=== PATIENT | male | born 1935 | race Caucasian/White ===

== ENCOUNTER 2018-10-23 16:14 | Emergency (ER) | payer MEDICARE, OTHER ==
--- NOTE | 2018-10-23 16:30 | EDM.PDOC ---
ED HPI GENERAL MEDICAL PROBLEM - General Stated Complaint: WEAK AND FALLING Time Seen by Provider: 10/23/18 16:14 Source of Information: Reports: Patient, EMS, Family History Limitations: Reports: Altered Mental Status, Physical Impairment - History of Present Illness INITIAL COMMENTS - FREE TEXT/NARRATIVE: 83 y.o.w.m with multiple medical issues, came to the ED by EMS due to multiple falls. Pt had a back injury in the past, he fractured T7. pt is cooperative but not able to give a HPI, which was given by his daughters. Pt fell 3 times in the past few days. He is getting some physical Tx to strengthen his extremities. Pt has neck, upper and lower back pain. No N/V/D, pt is not able to ambulate by himself, needs help with every step. He has his own apartment at the [facility], may need an upgrade in a full care home. BP 154/64 Pulse 54 RR 16 Pulse ox 94% on RA Temp 36.8 Onset: Today Onset Date: 10/23/18 Onset Time: 07:00 Duration: Hour(s):, Intermittent Location: Reports: Back, Generalized Quality: Reports: Dull, Pressure, Same as Previous Episode Severity: Moderate Improves with: Reports: Rest Worsens with: Reports: Movement Context: Reports: Other (fall) Associated Symptoms: Reports: Weakness - Related Data Allergies Allergy/AdvReac Type Severity Reaction Status Date / Time No Known Allergies Allergy Verified 10/23/18 16:38 Home Meds: Home Meds Acetaminophen [Tylenol Arthritis] 650 mg PO BID 02/21/16 [History] Aspirin [Ecotrin] 325 mg PO MOWEFR 02/21/16 [History] Cholecalciferol (Vitamin D3) [Vitamin D3] 1,000 unit PO BEDTIME 02/21/16 [ History] Donepezil HCl [Aricept] 5 mg PO BEDTIME 02/21/16 [History] Dutasteride [Avodart] 0.5 mg PO DAILY 02/21/16 [History] Furosemide [Lasix] 40 mg PO DAILY 02/21/16 [History] Gluc/Chnd/Om3/DHA/EPA/Fish/Str [Glucosamine-Chondr Plus Sftgel] 1 tab TID [History] Isosorbide Mononitrate [Imdur] 30 mg PO DAILY 02/21/16 [History] Metoprolol Succinate [Toprol XL 100mg] 100 mg PO DAILY 02/21/16 [History] Multivitamin-Min/Iron/FA/Vit K [Multi-Day Plus Minerals Tablet] 1 tab DAILY 09/26 [History] Omeprazole Magnesium [Prilosec Otc] 20 mg PO DAILY 02/21/16 [History] Petrolatum,White [Petroleum Jelly] 1 applic NASBOTH DAILY 02/21/16 [History] Simethicone 125 mg PO QID 02/21/16 [History] Tamsulosin [Flomax] 0.4 mg PO DAILY 02/21/16 [History] rOPINIRole [Requip] 0.5 mg PO BEDTIME 02/21/16 [History] Donepezil [Aricept] 10 mg PO BEDTIME #30 tablet 02/23/16 [Rx] Lisinopril [Prinivil] 10 mg PO BID #60 tablet 02/23/16 [Rx] amLODIPine [Norvasc] 2.5 mg PO BEDTIME #30 tablet 02/23/16 [Rx] Past Medical History HEENT History: Reports: Impaired Vision Cardiovascular History: Reports: CAD, High Cholesterol, Hypertension, SOB on Exertion Respiratory History: Reports: Sleep Apnea Gastrointestinal History: Reports: GERD Genitourinary History: Reports: BPH Endocrine/Metabolic History: Reports: Diabetes, Type II Social & Family History - Family History Family Medical History: Noncontributory ED ROS GENERAL - Review of Systems Review Of Systems: Unable To Obtain ED EXAM, NEURO - Physical Exam Exam: See Below Exam Limited By: Physical Impairment General Appearance: Alert, WD/WN, Mild Distress, Obese Eye Exam: Bilateral Eye: Normal Inspection Ears: Normal External Exam Nose: Normal Inspection Throat/Mouth: Normal Lips, Normal Voice, No Airway Compromise Head Exam: Atraumatic, Normocephalic Neck: Normal Inspection, Supple, Non-Tender Respiratory/Chest: No Respiratory Distress, Lungs Clear, Normal Breath Sounds, Chest Non-Tender Cardiovascular: Normal Peripheral Pulses, Regular Rate, Rhythm, Bradycardia GI/Abdominal: Normal Bowel Sounds, Soft, Non-Tender, No Organomegaly, No Abnormal Bruit, No Mass, Pelvis Stable (Male) Exam: Deferred Rectal (Males) Exam: Deferred Neurological: Alert, CN II-XII Intact, Abnormal Gait (uable to ambulate due to weakness and back pain, chronic) Back Exam: Decreased Range of Motion, Paraspinal Tenderness, Vertebral Tenderness (chronic) Extremities: Normal Inspection, Normal Range of Motion Psychiatric: Normal Affect, Depressed Mood Skin Exam: Warm, Dry, Intact, Normal Color EKG INTERPRETATION EKG Date: 10/23/18 Time: 16:25 Rhythm: NSR Rate (Beats/Min): 52 [place]: Normal P-Wave: Present QRS: Normal ST-T: Normal QT: Normal Comparison: NA - No Prior EKG Course - Vital Signs Text/Narrative:: 83 y.o.w.m with multiple medical issues, came to the ED by EMS due to multiple falls. Pt had a back injury in the past, he fractured T7. pt is cooperative but not able to give a HPI, which was given by his daughters. Pt fell 3 times in the past few days. He is getting some physical Tx to strengthen his extremities. Pt has neck, upper and lower back pain. No N/V/D, pt is not able to ambulate by himself, needs help with every step. He has his own apartment at the [facility] living [facility], may need an upgrade in a full care home. BP 154/64 Pulse 54 RR 16 Pulse ox 94% on RA Temp 36.8 PE: Obese 83 y.o.w.m with gen weakness and chronic patch pain after an injury in the distant past. Fell 3 time in the past week, able to ambulant with walker and help. Labs: CBC nl, BMP Nl except K 3.4 BUN 25 Cr 1.7 GFR 37 CK 345 Troponin was o.o17 nl UA was neg Imaging: CT Head: NAD, age related changes, Thoracic spine: No acute fx, nodule left upper lobe of lung, cholelithiasis C spine: Deg changes, no acute fracture Impression: Chronic mid back pain s/p T 7 Fx. Gen weakness, chronic. S/P fall, Bradycardia with nl BP Tx: Ice to lower bag Reexam: Pt was discussed with family who agreed to take him home Plan: D/C with instructions Last Recorded V/S: Last Vital Signs Temp 36.6 C 10/23/18 19:45 Pulse 69 10/23/18 19:45 Resp 16 10/23/18 19:45 BP 159/95 H 10/23/18 19:45 Pulse Ox 97 10/23/18 19:45 - Orders/Labs/Meds Orders: Active Orders 24 hr Category Date Time Status Cervical Spine wo Cont [CT] Stat Exams 10/23/18 16:24 Taken Head wo Cont [CT] Stat Exams 10/23/18 16:24 Taken Lumbar Spine wo Cont [CT] Stat Exams 10/23/18 16:24 Taken Thoracic Spine wo Cont [CT] Stat Exams 10/23/18 16:24 Taken EKG 12 Lead [EK] Routine Ther 10/23/18 16:24 Ordered Labs: Laboratory Tests 10/23/18 10/23/18 10/23/18 Range/Units 16:40 16:40 16:40 WBC 11.2 (4.5-12.0) X10-3/uL RBC 4.51 (4.30-5.75) x10(6)uL Hgb 13.8 (11.5-15.5) g/dL Hct 41.0 (30.0-51.3) % MCV 90.8 (80-96) fL MCH 30.6 (27.7-33.6) pg MCHC 33.7 (32.2-35.4) g/dL RDW 13.5 (11.5-15.5) % Plt Count 250 (125-369) X10(3)uL MPV 8.7 (7.4-10.4) fL Neut % (Auto) 77.3 (46-82) % Lymph % (Auto) 12.0 L (13-37) % [place] % (Auto) 6.8 (4-12) % Eos % (Auto) 4 (1.0-5.0) % Baso % (Auto) 0 (0-2) % Neut # (Auto) 8.7 H (1.6-8.3) # Lymph # (Auto) 1.3 (0.6-5.0) # [place] # (Auto) 0.8 (0.0-1.3) # Eos # (Auto) 0.4 (0.0-0.8) # Baso # (Auto) 0.0 (0.0-0.2) # PT 10.4 (8.7-11.1) INR 1.07 (0.89-1.13) Sodium 142 (135-145) mmol/L Potassium 3.4 L (3.5-5.3) mmol/L Chloride 107 (100-110) mmol/L Carbon Dioxide 26 (21-32) mmol/L BUN 25 H (7-18) mg/dL Creatinine 1.7 H (0.70-1.30) mg/dL Est Cr Clr Drug Dosing TNP Estimated GFR (MDRD) 39 L (>60) BUN/Creatinine Ratio 14.7 (9-20) Glucose 156 H (80-116) mg/dL Calcium 8.6 (8.6-10.2) mg/dL Magnesium 1.8 (1.8-2.5) mg/dL Creatine Kinase 328 H* (60-160) IU/L Troponin I (<0.017-0.056) ng/mL Urine Color (YELLOW) Urine Appearance (CLEAR) Urine pH (5.0-6.5) Ur Specific [place] (1.010-1.025) Urine Protein (NEGATIVE) mg/dL Urine Glucose (UA) (NEGATIVE) mg/dL Urine Ketones (NEGATIVE) mg/dL Urine Occult Blood (NEGATIVE) Urine Nitrite (NEGATIVE) Urine Bilirubin (NEGATIVE) Urine Urobilinogen (NEGATIVE) mg/dL Ur Leukocyte Esterase (NEGATIVE) Urine RBC (0) Urine WBC (0) Ur Squamous Epith Cells (NS,R,O) Urine Bacteria (NS) 10/23/18 10/23/18 Range/Units 16:40 17:55 WBC (4.5-12.0) X10-3/uL RBC (4.30-5.75) x10(6)uL Hgb (11.5-15.5) g/dL Hct (30.0-51.3) % MCV (80-96) fL MCH (27.7-33.6) pg MCHC (32.2-35.4) g/dL RDW (11.5-15.5) % Plt Count (125-369) X10(3)uL MPV (7.4-10.4) fL Neut % (Auto) (46-82) % Lymph % (Auto) (13-37) % [place] % (Auto) (4-12) % Eos % (Auto) (1.0-5.0) % Baso % (Auto) (0-2) % Neut # (Auto) (1.6-8.3) # Lymph # (Auto) (0.6-5.0) # [place] # (Auto) (0.0-1.3) # Eos # (Auto) (0.0-0.8) # Baso # (Auto) (0.0-0.2) # PT (8.7-11.1) INR (0.89-1.13) Sodium (135-145) mmol/L Potassium (3.5-5.3) mmol/L Chloride (100-110) mmol/L Carbon Dioxide (21-32) mmol/L BUN (7-18) mg/dL Creatinine (0.70-1.30) mg/dL Est Cr Clr Drug Dosing Estimated GFR (MDRD) (>60) BUN/Creatinine Ratio (9-20) Glucose (80-116) mg/dL Calcium (8.6-10.2) mg/dL Magnesium (1.8-2.5) mg/dL Creatine Kinase (60-160) IU/L Troponin I < 0.017 L (<0.017-0.056) ng/mL Urine Color Yellow (YELLOW) Urine Appearance Clear (CLEAR) Urine pH 5.0 (5.0-6.5) Ur Specific [place] 1.020 (1.010-1.025) Urine Protein Negative (NEGATIVE) mg/dL Urine Glucose (UA) Normal (NEGATIVE) mg/dL Urine Ketones Negative (NEGATIVE) mg/dL Urine Occult Blood Negative (NEGATIVE) Urine Nitrite Negative (NEGATIVE) Urine Bilirubin Negative (NEGATIVE) Urine Urobilinogen Normal (NEGATIVE) mg/dL Ur Leukocyte Esterase Negative (NEGATIVE) Urine RBC 0-5 (0) Urine WBC 0-5 (0) Ur Squamous Epith Cells Occasional (NS,R,O) Urine Bacteria Rare H (NS) Departure - Departure Time of Disposition: 19:14 Disposition: Home, Self-Care 01 Condition: Good Clinical Impression: Weakness, Chronic back pain greater than 3 months duration Fall Qualifiers: Encounter type: initial encounter Qualified Code(s): W19.XXXA - Unspecified fall, initial encounter - Discharge Information Instructions: Dehydration, Elderly, Weakness, Chronic Back Pain, Rehydration, Elderly Referrals: Saad Orona MD [Primary Care Provider] - Forms: ED Department Discharge Additional Instructions: Please cont your current meds, ICE to lower back, Physical Tx, please f/u, come back if your symptoms get worse acutely - My Orders Last 24 Hours: My Active Orders 10/23/18 16:24 Cervical Spine wo Cont [CT] Stat Head wo Cont [CT] Stat Lumbar Spine wo Cont [CT] Stat Thoracic Spine wo Cont [CT] Stat EKG 12 Lead [EK] Routine - Assessment/Plan Last 24 Hours: My Active Orders 10/23/18 16:24 Cervical Spine wo Cont [CT] Stat Head wo Cont [CT] Stat Lumbar Spine wo Cont [CT] Stat Thoracic Spine wo Cont [CT] Stat EKG 12 Lead [EK] Routine
[2018-10-24 08:04] VITALS: BP 159/95
== END 2018-10-23 19:45 | disposition home or self-care (01) ==
LOC: FB.ED 16:14
DX: M54.5 Low back pain (principal); G89.29 Other chronic pain; E11.9 Type 2 diabetes mellitus without complications; I10 Essential (primary) hypertension; Z79.82 Long term (current) use of aspirin; Z79.899 Other long term (current) drug therapy; W19.XXXA Unspecified fall, initial encounter
CPT/HCPCS: 36415; 70450; 72125; 72128; 72131; 80048; 81001; 82550; 83735; 84484; 85025; 85610; 93005; 99284

== ENCOUNTER 2020-04-04 09:39 | Inpatient (IN) | payer MEDICARE, OTHER ==
[2020-04-04] MEDS ORDERED: Sodium Chloride 0.9% 1,000 ML IV SCH ×2 (10:00→15:45)
[2020-04-04] MEDS: Sodium Chloride 0.9% 10 ML Syringe FLUSH PRN ×2 (10:20→10:55)
--- NOTE | 2020-04-04 10:37 | CR ---
INDICATION: Altered level of consciousness. CHEST, ONE VIEW: AP upright portable view of the chest 04/04/20 was compared with 02/21/16 and 10/15/11 revealing a very poor inspiration. Overlying snaps are noted. The heart is prominent in appearance, most likely due to the poor inspiration but cannot exclude a degree of cardiomegaly. The aorta is somewhat tortuous with calcification in the arch. Mild dextroconvex scoliosis of the thoracic spine is noted. Pleural effusion is suggested at the left lung base with blunting of the costophrenic angle. There may be some minimal infiltrate at the left lower lobe raising question of pneumonia and pleuritis there. The right lung and pleural space appeared relatively normal. IMPRESSION: 1. Possible pneumonia and pleuritis at the left lung base. 2. Possible ASHD with cardiomegaly - when clinically possible, full inspiration PA and lateral views of the chest may be helpful for further evaluation. MTDD
--- NOTE | 2020-04-04 11:03 | CT ---
INDICATION: Altered level of consciousness. CT HEAD WITHOUT CONTRAST: Spiral 3.75 mm axial sections were obtained through the brain with sagittal and coronal reconstructions 04/04/20 and compared with 10/23/18. Total exam DLP was 1348.07 mGy-cm. Paranasal sinuses and mastoid air cells appear to be well aerated. No cranial abnormality was identified. Moderate degenerative changes are noted at the odontoatlantian joint. Calcifications noted in the right vertebral artery and minimally in the internal carotid arteries. The orbits appear to be intact. Prominence of the ventricles and sulci are compatible, as previously, with generalized atrophy. No shift of midline structures was identified. IMPRESSION: 1. Stable appearance of the brain with evidence of generalized atrophy. 2. Cerebrovascular disease. 3. No bleeding site or hematoma. Report was called to Dr. Santiago at 1046 hours. [facility]
--- NOTE | 2020-04-04 12:39 | EDM.PDOC ---
ED HPI GENERAL MEDICAL PROBLEM - General Chief Complaint: General Stated Complaint: VERY LATHERGIC Time Seen by Provider: 04/04/20 09:45 Source of Information: Reports: Patient History Limitations: Reports: No Limitations - History of Present Illness INITIAL COMMENTS - FREE TEXT/NARRATIVE: Patient is an 85 YO WM who is a resident at the [facility] presented to the ED because of weaknes and frequent fall during the past couple of months. He is gradually declining per POA. For the past 3 days he has poor oral intake, lethhargic and couldn't perform ADL's which he normally does with some help. There is no recent cough or cold, fever, chills, N/V/D. He denies any chest pain or dyspnea. POA wants her to be evaluated for NH placement. - Related Data Allergies Allergy/AdvReac Type Severity Reaction Status Date / Time No Known Allergies Allergy Verified 04/04/20 10:04 Home Meds: Home Meds Acetaminophen [Tylenol Arthritis] 1,300 mg PO BID 02/21/16 [History] Aspirin [Ecotrin EC] 325 mg PO SUMOWEFR 02/21/16 [History] Cholecalciferol (Vitamin D3) [Vitamin D3] 1,000 unit PO BEDTIME 02/21/16 [His tory] Dutasteride [Avodart] 0.5 mg PO DAILY 02/21/16 [History] Furosemide [Lasix] 40 mg PO DAILY 02/21/16 [History] Gluc/Chnd/Om3/DHA/EPA/Fish/Str [Glucosamine-Chondr Plus Sftgel] 1 tab TID 02/21/16 [History] Isosorbide Mononitrate [Imdur] 30 mg PO DAILY 02/21/16 [History] Metoprolol Succinate [Toprol XL 100mg] 100 mg PO DAILY 02/21/16 [History] Multivitamin-Min/Iron/FA/Vit K [Multi-Day Plus Minerals Tablet] 1 tab PO DAILY 02/21/16 [History] Omeprazole Magnesium [Prilosec Otc] 20 mg PO DAILY 02/21/16 [History] rOPINIRole [Requip] 0.5 mg PO BEDTIME 02/21/16 [History] Donepezil [Aricept] 10 mg PO BEDTIME #30 tablet 02/23/16 [Rx] Memantine HCl [Namenda] 10 mg PO BID 04/04/20 [History] Sodium Chloride [Saline Nasal [place]] 1 spray NASBOTH ASDIRECTED PRN 04/04/20 [History] Terbinafine [LamISIL AT 1% Crm] 1 applic TOP ASDIRECTED PRN 04/04/20 [History] amLODIPine Besylate [Amlodipine Besylate] 5 mg PO BID 04/04/20 [History] Past Medical History HEENT History: Reports: Epistaxis, Impaired Vision Cardiovascular History: Reports: CAD, Heart Failure, High Cholesterol, Hypertension, SOB on Exertion, Other (See Below) Other Cardiovascular History: Fatigue, dizziness Respiratory History: Reports: Sleep Apnea Gastrointestinal History: Reports: GERD Genitourinary History: Reports: BPH Musculoskeletal History: Reports: Back Pain, Chronic, Osteoarthritis, Other (See Below) Other Musculoskeletal History: cervial disc degeneration, restless leg syndrome, contusion left knee, frequent falls Neurological History: Reports: Alzheimers Disease Other Neuro History: Dementia Psychiatric History: Reports: Anxiety, Depression Endocrine/Metabolic History: Reports: Diabetes, Type II Social & Family History - Family History Family Medical History: Noncontributory - Tobacco Use Smoking Status *Q: Never Smoker Second Hand Smoke Exposure: No - Caffeine Use Caffeine Use: Reports: Coffee - Recreational Drug Use Recreational Drug Use: No ED ROS GENERAL - Review of Systems Review Of Systems: See Below Constitutional: Reports: Weakness, Decreased Appetite HEENT: Reports: No Symptoms Respiratory: Reports: No Symptoms Cardiovascular: Reports: No Symptoms Endocrine: Reports: No Symptoms GI/Abdominal: Reports: No Symptoms : Reports: No Symptoms Musculoskeletal: Reports: No Symptoms Skin: Reports: No Symptoms Neurological: Reports: No Symptoms ED EXAM, GENERAL - Physical Exam Exam: See Below Exam Limited By: Altered Mental Status General Appearance: Lethargic Eye Exam: Bilateral Eye: PERRL Ears: Normal External Exam, Normal Canal Nose: Normal Inspection, Normal Mucosa, No Blood Throat/Mouth: Normal Inspection, Normal Lips, Normal Teeth, Normal Gums Head: Atraumatic, Normocephalic Neck: Normal Inspection, Supple, Non-Tender, Full Range of Motion Respiratory/Chest: No Respiratory Distress, Lungs Clear, Normal Breath Sounds Cardiovascular: Normal Peripheral Pulses, Regular Rate, Rhythm, No Edema, No JVD, No Murmur, No Rub GI/Abdominal: Normal Bowel Sounds, Soft, Non-Tender, No Organomegaly, No Distention Back Exam: Normal Inspection, Full Range of Motion Extremities: Normal Inspection, Normal Range of Motion, Non-Tender Course - Vital Signs Text/Narrative:: Labs/EKG/CXR/Head CT was discussed with patient and POA NS 1 L bolus in 2 hours Code Status: DNR/DNI Last Recorded V/S: Last Vital Signs Temp 35.1 C L 04/04/20 11:14 Pulse 38 L 04/04/20 11:14 Resp 18 04/04/20 11:14 BP 125/55 L 04/04/20 11:14 Pulse Ox 96 04/04/20 11:14 - Orders/Labs/Meds Orders: Active Orders 24 hr Category Date Time Status EKG Documentation Completion [RC] ASDIRECTED Care 04/04/20 09:54 Active Sodium Chloride 0.9% [Normal Saline] 1,000 ml Med 04/04/20 10:00 Active IV ASDIRECTED Sodium Chloride 0.9% [Saline Flush] Med 04/04/20 09:53 Active 10 ml FLUSH ASDIRECTED PRN Saline Lock Insert [OM.PC] Routine Oth 04/04/20 09:53 Ordered EKG 12 Lead [EK] Routine Ther 04/04/20 09:53 Ordered Medication Orders Sodium Chloride (Normal Saline) 1,000 mls @ 500 mls/hr IV ASDIRECTED JOCE Last Admin: 04/04/20 10:58 Dose: 500 mls/hr Documented by: TWIN Sodium Chloride (Saline Flush) 10 ml FLUSH ASDIRECTED PRN PRN Reason: Keep Vein Open Last Admin: 04/04/20 10:55 Dose: 10 ml Documented by: Admin: 04/04/20 10:20 Dose: 10 ml Documented by: TWIN Labs: Laboratory Tests 04/04/20 04/04/20 04/04/20 Range/Units 10:10 10:10 10:10 WBC 9.9 (4.5-12.0) X10-3/uL RBC 4.53 (4.30-5.75) x10(6)uL Hgb 12.6 L (13.5-17.8) g/dL Hct 40.6 (30.0-51.3) % MCV 89.6 (80-96) fL MCH 27.7 (27.7-33.6) pg MCHC 30.9 L (32.2-35.4) g/dL RDW 15.7 H (11.5-15.5) % Plt Count 125 (125-369) X10(3)uL MPV 10.8 H (7.4-10.4) fL Add Manual Diff Yes Neutrophils % (Manual) 85 H (46-82) % Lymphocytes % (Manual) 10 L (13-37) % Monocytes % (Manual) 4 (4-12) % Eosinophils % (Manual) 1 (0-5) % Sodium 147 H (135-145) mmol/L Potassium 5.2 D (3.5-5.3) mmol/L Chloride 111 H (100-110) mmol/L Carbon Dioxide 30 (21-32) mmol/L BUN 55 H D (7-18) mg/dL Creatinine 2.4 H* (0.70-1.30) mg/dL Est Cr Clr Drug Dosing 18.84 mL/min Estimated GFR (MDRD) 26 L (>60) BUN/Creatinine Ratio 22.9 H (9-20) Glucose 183 H (80-116) mg/dL Calcium 8.9 (8.6-10.2) mg/dL Total Bilirubin 0.2 (0.1-1.3) mg/dL AST 38 H (5-25) IU/L ALT 71 H (12-36) U/L Alkaline Phosphatase 139 H (56-112) IU/L Creatine Kinase (60-160) IU/L Troponin I 27.7 (4.0-60.3) pg/mL NT-Pro-B Natriuret Pep 786 H (<=450) pg/mL Total Protein 6.6 (6.0-8.0) g/dL Albumin 2.9 L (3.2-4.6) g/dL Globulin 3.7 g/dL Albumin/Globulin Ratio 0.8 TSH, Ultra Sensitive 6.24 H (0.36-3.74) IU/mL Urine Color (YELLOW) Urine Appearance (CLEAR) Urine pH (5.0-6.5) Ur Specific [place] (1.010-1.025) Urine Protein (NEGATIVE) mg/dL Urine Glucose (UA) (NORMAL) mg/dL Urine Ketones (NEGATIVE) mg/dL Urine Occult Blood (NEGATIVE) Urine Nitrite (NEGATIVE) Urine Bilirubin (NEGATIVE) Urine Urobilinogen (NEGATIVE) mg/dL Ur Leukocyte Esterase (NEGATIVE) Urine RBC (0-5) Urine WBC (0-5) Ur Squamous Epith Cells (NS,R,O) Amorphous Sediment Urine Bacteria (NS) SARS Virus RNA (PCR) (NEGATIVE) 04/04/20 04/04/20 04/04/20 Range/Units 10:10 11:05 11:10 WBC (4.5-12.0) X10-3/uL RBC (4.30-5.75) x10(6)uL Hgb (13.5-17.8) g/dL Hct (30.0-51.3) % MCV (80-96) fL MCH (27.7-33.6) pg MCHC (32.2-35.4) g/dL RDW (11.5-15.5) % Plt Count (125-369) X10(3)uL MPV (7.4-10.4) fL Add Manual Diff Neutrophils % (Manual) (46-82) % Lymphocytes % (Manual) (13-37) % Monocytes % (Manual) (4-12) % Eosinophils % (Manual) (0-5) % Sodium (135-145) mmol/L Potassium (3.5-5.3) mmol/L Chloride (100-110) mmol/L Carbon Dioxide (21-32) mmol/L BUN (7-18) mg/dL Creatinine (0.70-1.30) mg/dL Est Cr Clr Drug Dosing mL/min Estimated GFR (MDRD) (>60) BUN/Creatinine Ratio (9-20) Glucose (80-116) mg/dL Calcium (8.6-10.2) mg/dL Total Bilirubin (0.1-1.3) mg/dL AST (5-25) IU/L ALT (12-36) U/L Alkaline Phosphatase (56-112) IU/L Creatine Kinase 47 L (60-160) IU/L Troponin I (4.0-60.3) pg/mL NT-Pro-B Natriuret Pep (<=450) pg/mL Total Protein (6.0-8.0) g/dL Albumin (3.2-4.6) g/dL Globulin g/dL Albumin/Globulin Ratio TSH, Ultra Sensitive (0.36-3.74) IU/mL Urine Color Yellow (YELLOW) Urine Appearance Clear (CLEAR) Urine pH 5.0 (5.0-6.5) Ur Specific [place] 1.015 (1.010-1.025) Urine Protein Negative (NEGATIVE) mg/dL Urine Glucose (UA) Normal (NORMAL) mg/dL Urine Ketones Negative (NEGATIVE) mg/dL Urine Occult Blood Trace (NEGATIVE) Urine Nitrite Negative (NEGATIVE) Urine Bilirubin Negative (NEGATIVE) Urine Urobilinogen Normal (NEGATIVE) mg/dL Ur Leukocyte Esterase Negative (NEGATIVE) Urine RBC 5-10 H (0-5) Urine WBC 0-5 (0-5) Ur Squamous Epith Cells Moderate H (NS,R,O) Amorphous Sediment Many Urine Bacteria Rare H (NS) SARS Virus RNA (PCR) Negative (NEGATIVE) Meds: Medications Generic Name Dose Route Start Last Admin Trade Name Freq PRN Reason Stop Dose Admin Sodium Chloride 1,000 mls @ 500 mls/hr 04/04/20 10:00 04/04/20 10:58 Normal Saline IV 500 mls/hr ASDIRECTED JOCE Administration Sodium Chloride 10 ml 04/04/20 09:53 04/04/20 10:55 Saline Flush FLUSH 10 ml ASDIRECTED PRN Administration Keep Vein Open Departure - Departure Time of Disposition: 12:45 Disposition: Refer to Observation Condition: Good Clinical Impression: Dehydration, PETEY (acute kidney injury), Metabolic encephalopathy, FTT (failure to thrive) in adult, CHF (congestive heart failure) - Discharge Information Referrals: Saad Orona MD [Primary Care Provider] - Sepsis Event Note (ED) - Evaluation Sepsis Screening Result: No Definite Risk - Focused Exam Vital Signs: Vital Signs Temp Pulse Resp BP Pulse Ox 04/04/20 11:14 35.1 C L 38 L 18 125/55 L 96 04/04/20 09:45 34.6 C L 39 L 18 111/56 L 95 - My Orders Last 24 Hours: My Active Orders 04/04/20 09:53 Sodium Chloride 0.9% [Saline Flush] 10 ml FLUSH ASDIRECTED PRN Saline Lock Insert [OM.PC] Routine EKG 12 Lead [EK] Routine 04/04/20 09:54 EKG Documentation Completion [RC] ASDIRECTED 04/04/20 10:00 Sodium Chloride 0.9% [Normal Saline] 1,000 ml IV ASDIRECTED - Assessment/Plan Last 24 Hours: My Active Orders 04/04/20 09:53 Sodium Chloride 0.9% [Saline Flush] 10 ml FLUSH ASDIRECTED PRN Saline Lock Insert [OM.PC] Routine EKG 12 Lead [EK] Routine 04/04/20 09:54 EKG Documentation Completion [RC] ASDIRECTED 04/04/20 10:00 Sodium Chloride 0.9% [Normal Saline] 1,000 ml IV ASDIRECTED
[2020-04-04] MEDS ORDERED: Terbinafine 1% Crm 30 GM Tube TOP PRN (14:56)
[2020-04-04] MEDS ORDERED: Sodium Chloride 0.65% Nasal Spray 45 ML Bottle NASBOTH PRN (14:56)
[2020-04-04] MEDS ORDERED: Sodium Chloride 0.9% 10 ML Syringe FLUSH PRN (15:08)
[2020-04-04] MEDS ORDERED: LORazepam 2 MG/ML SDV IVPUSH PRN (15:08)
[2020-04-04] MEDS ORDERED: Morphine 2 MG/ML Syringe IVPUSH PRN (15:08)
[2020-04-04] MEDS ORDERED: Ondansetron 4 MG/2 ML SDV IVPUSH PRN (15:08)
--- NOTE | 2020-04-04 17:08 | PCM.HP.2 ---
H&P History of Present Illness - General Date of Service: 04/04/20 Admit Problem/Dx: Admission Diagnosis/Problem Admission Diagnosis/Problem Metabolic encephalopathy Source of Information: EMS Notes Reviewed, Family (Iwona, POA), Provider History Limitations: Reports: Altered Mental Status - History of Present Illness Initial Comments - Free Text/Narative: Marc is an 85 yr old male from [facility] who was brought in due to increased lethargy, functional decline, poor intake over the last 2-3 days. History obtained from Iwona, his POA as patient is limited in his response. No reports of fevers, chills, nausea, vomiting or diarrhea. He was able do do most of ADLs in his room, did have assistance with dressing and meals. He was found to be profoundly bradycardiac, hypothermic, dehydrated in ER. CT head was negative. CXR showed questionable pneumonia but clinically lungs are clear with normal WBC. PETEY present. Discussion with Iwona, she understands that fluid res uscitation may not improve his condition and if he would need to be changed to end of life care that he can go back to [facility], the type of room he has they are able to do end of life care with hospice. If he does improve, she was looking at NH placement. - Related Data Allergies/Adverse Reactions: Allergies Allergy/AdvReac Type Severity Reaction Status Date / Time No Known Allergies Allergy Verified 04/04/20 10:04 Home Medications: Home Meds Acetaminophen [Tylenol Arthritis] 1,300 mg PO BID 02/21/16 [History] Aspirin [Ecotrin EC] 325 mg PO SUMOWEFR 02/21/16 [History] Cholecalciferol (Vitamin D3) [Vitamin D3] 1,000 unit PO BEDTIME 02/21/16 [History] Dutasteride [Avodart] 0.5 mg PO DAILY 02/21/16 [History] Furosemide [Lasix] 40 mg PO DAILY 02/21/16 [History] Gluc/Chnd/Om3/DHA/EPA/Fish/Str [Glucosamine-Chondr Plus Sftgel] 1 tab TID 02/21/16 [History] Isosorbide Mononitrate [Imdur] 30 mg PO DAILY 02/21/16 [History] Metoprolol Succinate [Toprol XL 100mg] 100 mg PO DAILY 02/21/16 [History] Multivitamin-Min/Iron/FA/Vit K [Multi-Day Plus Minerals Tablet] 1 tab PO DAILY 02/21/16 [History] Omeprazole Magnesium [Prilosec Otc] 20 mg PO DAILY 02/21/16 [History] rOPINIRole [Requip] 0.5 mg PO BEDTIME 02/21/16 [History] Donepezil [Aricept] 10 mg PO BEDTIME #30 tablet 02/23/16 [Rx] Memantine HCl [Namenda] 10 mg PO BID 04/04/20 [History] Sodium Chloride [Saline Nasal [place]] 1 spray NASBOTH ASDIRECTED PRN 04/04/20 [History] Terbinafine [LamISIL AT 1% Crm] 1 applic TOP ASDIRECTED PRN 04/04/20 [History] amLODIPine Besylate [Amlodipine Besylate] 5 mg PO BID 04/04/20 [History] Past Medical History HEENT History: Reports: Epistaxis, Impaired Vision Cardiovascular History: Reports: CAD, Heart Failure, High Cholesterol, Hypertension, SOB on Exertion, Other (See Below) Other Cardiovascular History: Fatigue, dizziness Respiratory History: Reports: Sleep Apnea Gastrointestinal History: Reports: GERD Genitourinary History: Reports: BPH Musculoskeletal History: Reports: Back Pain, Chronic, Osteoarthritis, Other (See Below) Other Musculoskeletal History: cervial disc degeneration, restless leg syndrome, contusion left knee, frequent falls Neurological History: Reports: Alzheimers Disease Other Neuro History: Dementia Psychiatric History: Reports: Anxiety, Depression Endocrine/Metabolic History: Reports: Diabetes, Type II Social & Family History - Family History Family Medical History: Noncontributory - Tobacco Use Smoking Status *Q: Never Smoker Second Hand Smoke Exposure: No - Caffeine Use Caffeine Use: Reports: Coffee - Recreational Drug Use Recreational Drug Use: No H&P Review of Systems - Review of Systems: Review Of Systems: Unable To Obtain Reason Not Obtained: opens eyes to commands but nonverbal currently. Exam - Exam Exam: See Below - Vital Signs Vital Signs: Last Vital Signs Temp 94.9 F L 04/04/20 14:00 Pulse 37 L 04/04/20 14:00 Resp 12 04/04/20 14:00 BP 137/60 04/04/20 14:00 Pulse Ox 91 L 04/04/20 14:00 Weight: 180 lb - Exam General: Cooperative, Lethargic, Obtunded (opens eyes to commands). No: Alert, Oriented HEENT: Hearing Intact, Normal Nasal Septum, Posterior Pharynx Clear, Pupils Equal, TMs Clear, Abnormal Pupils (1 mm pin point) Neck: Supple, Trachea Midline. No: Lymphadenopathy Lungs: Clear to Auscultation. No: Normal Respiratory Effort (diminished), Wheezing Cardiovascular: Bradycardia GI/Abdominal Exam: Normal Bowel Sounds, Soft, Non-Tender (did not respond), No Distention, No Mass. No: Guarding, Rigid (Male) Exam: Deferred Rectal (Males) Exam: Deferred Extremities: No Pedal Edema, Pallor (cold to touch). No: Mottled Peripheral Pulses: 1+: Radial (L), Radial (R) Skin: Dry, Intact, Cool Neuro Extensive - Mental Status: Opens Eyes to Commands - Patient Data Lab Results Last 24 hrs: Laboratory Results - last 24 hr 04/04/20 04/04/20 04/04/20 Range/Units 10:10 10:10 10:10 WBC 9.9 (4.5-12.0) X10-3/uL RBC 4.53 (4.30-5.75) x10(6)uL Hgb 12.6 L (13.5-17.8) g/dL Hct 40.6 (30.0-51.3) % MCV 89.6 (80-96) fL MCH 27.7 (27.7-33.6) pg MCHC 30.9 L (32.2-35.4) g/dL RDW 15.7 H (11.5-15.5) % Plt Count 125 (125-369) X10(3)uL MPV 10.8 H (7.4-10.4) fL Add Manual Diff Yes Neutrophils % (Manual) 85 H (46-82) % Lymphocytes % (Manual) 10 L (13-37) % Monocytes % (Manual) 4 (4-12) % Eosinophils % (Manual) 1 (0-5) % Sodium 147 H (135-145) mmol/L Potassium 5.2 D (3.5-5.3) mmol/L Chloride 111 H (100-110) mmol/L Carbon Dioxide 30 (21-32) mmol/L BUN 55 H D (7-18) mg/dL Creatinine 2.4 H* (0.70-1.30) mg/dL Est Cr Clr Drug Dosing 18.84 mL/min Estimated GFR (MDRD) 26 L (>60) BUN/Creatinine Ratio 22.9 H (9-20) Glucose 183 H (80-116) mg/dL Calcium 8.9 (8.6-10.2) mg/dL Total Bilirubin 0.2 (0.1-1.3) mg/dL AST 38 H (5-25) IU/L ALT 71 H (12-36) U/L Alkaline Phosphatase 139 H (56-112) IU/L Creatine Kinase (60-160) IU/L Troponin I 27.7 (4.0-60.3) pg/mL NT-Pro-B Natriuret Pep 786 H (<=450) pg/mL Total Protein 6.6 (6.0-8.0) g/dL Albumin 2.9 L (3.2-4.6) g/dL Globulin 3.7 g/dL Albumin/Globulin Ratio 0.8 TSH, Ultra Sensitive 6.24 H (0.36-3.74) IU/mL Urine Color (YELLOW) Urine Appearance (CLEAR) Urine pH (5.0-6.5) Ur Specific [place] (1.010-1.025) Urine Protein (NEGATIVE) mg/dL Urine Glucose (UA) (NORMAL) mg/dL Urine Ketones (NEGATIVE) mg/dL Urine Occult Blood (NEGATIVE) Urine Nitrite (NEGATIVE) Urine Bilirubin (NEGATIVE) Urine Urobilinogen (NEGATIVE) mg/dL Ur Leukocyte Esterase (NEGATIVE) Urine RBC (0-5) Urine WBC (0-5) Ur Squamous Epith Cells (NS,R,O) Amorphous Sediment Urine Bacteria (NS) SARS Virus RNA (PCR) (NEGATIVE) 04/04/20 04/04/20 04/04/20 Range/Units 10:10 11:05 11:10 WBC (4.5-12.0) X10-3/uL RBC (4.30-5.75) x10(6)uL Hgb (13.5-17.8) g/dL Hct (30.0-51.3) % MCV (80-96) fL MCH (27.7-33.6) pg MCHC (32.2-35.4) g/dL RDW (11.5-15.5) % Plt Count (125-369) X10(3)uL MPV (7.4-10.4) fL Add Manual Diff Neutrophils % (Manual) (46-82) % Lymphocytes % (Manual) (13-37) % Monocytes % (Manual) (4-12) % Eosinophils % (Manual) (0-5) % Sodium (135-145) mmol/L Potassium (3.5-5.3) mmol/L Chloride (100-110) mmol/L Carbon Dioxide (21-32) mmol/L BUN (7-18) mg/dL Creatinine (0.70-1.30) mg/dL Est Cr Clr Drug Dosing mL/min Estimated GFR (MDRD) (>60) BUN/Creatinine Ratio (9-20) Glucose (80-116) mg/dL Calcium (8.6-10.2) mg/dL Total Bilirubin (0.1-1.3) mg/dL AST (5-25) IU/L ALT (12-36) U/L Alkaline Phosphatase (56-112) IU/L Creatine Kinase 47 L (60-160) IU/L Troponin I (4.0-60.3) pg/mL NT-Pro-B Natriuret Pep (<=450) pg/mL Total Protein (6.0-8.0) g/dL Albumin (3.2-4.6) g/dL Globulin g/dL Albumin/Globulin Ratio TSH, Ultra Sensitive (0.36-3.74) IU/mL Urine Color Yellow (YELLOW) Urine Appearance Clear (CLEAR) Urine pH 5.0 (5.0-6.5) Ur Specific [place] 1.015 (1.010-1.025) Urine Protein Negative (NEGATIVE) mg/dL Urine Glucose (UA) Normal (NORMAL) mg/dL Urine Ketones Negative (NEGATIVE) mg/dL Urine Occult Blood Trace (NEGATIVE) Urine Nitrite Negative (NEGATIVE) Urine Bilirubin Negative (NEGATIVE) Urine Urobilinogen Normal (NEGATIVE) mg/dL Ur Leukocyte Esterase Negative (NEGATIVE) Urine RBC 5-10 H (0-5) Urine WBC 0-5 (0-5) Ur Squamous Epith Cells Moderate H (NS,R,O) Amorphous Sediment Many Urine Bacteria Rare H (NS) SARS Virus RNA (PCR) Negative (NEGATIVE) Result Diagrams: 04/04/20 10:10 04/04/20 10:10 Sepsis Event Note - Evaluation Sepsis Screening Result: No Definite Risk - Focused Exam Vital Signs: Vital Signs Temp Pulse Resp BP Pulse Ox 04/04/20 14:00 94.9 F L 37 L 12 137/60 91 L 04/04/20 13:31 95.0 F L 38 L 14 131/51 L 93 L 04/04/20 12:38 95.1 F L 38 L 16 135/52 L 94 L 04/04/20 11:14 95.2 F L 38 L 18 125/55 L 96 04/04/20 09:45 94.2 F L 39 L 18 111/56 L 95 Date Exam was Performed: 04/04/20 Time Exam was Performed: 17:02 *Q Meaningful Use (ADM) - VTE Risk Assess *Q Each Risk Factor Represents 2 Points: Patient confined to bed greater than 72 hours Total Score 2 Point Risk Factors: 2 Each Risk Factor Represents 3 Points: Age 75 Years or Greater Total Score 3 Point Risk Factors: 3 - Problem List (1) Hypothermia due to non-environmental cause SNOMED Code(s): 540193646 ICD Code: R68.0 - HYPOTHERMIA, NOT ASSOCIATED W LOW ENVIRONMENTAL TEMPERATURE Status: Acute Current Visit: Yes (2) PETEY (acute kidney injury) SNOMED Code(s): 37486955, 46832300 ICD Code: N17.9 - ACUTE KIDNEY FAILURE, UNSPECIFIED Status: Acute Current Visit: Yes (3) Dehydration SNOMED Code(s): 57830298 ICD Code: E86.0 - DEHYDRATION Status: Acute Current Visit: Yes (4) FTT (failure to thrive) in adult SNOMED Code(s): 219683935 ICD Code: R62.7 - ADULT FAILURE TO THRIVE Status: Acute Current Visit: Yes (5) Metabolic encephalopathy SNOMED Code(s): 57194973 ICD Code: G93.41 - METABOLIC ENCEPHALOPATHY Status: Acute Current Visit: Yes (6) CHF (congestive heart failure) SNOMED Code(s): 69571234 ICD Code: I50.9 - HEART FAILURE, UNSPECIFIED Status: Chronic Current Visit: Yes (7) Physical deconditioning SNOMED Code(s): 03075750408956 ICD Code: R53.81 - OTHER MALAISE Status: Acute Current Visit: No (8) Dementia SNOMED Code(s): 22240381 ICD Code: F03.90 - UNSPECIFIED DEMENTIA WITHOUT BEHAVIORAL DISTURBANCE Status: Chronic Current Visit: No (9) Hypertension SNOMED Code(s): 13322359 ICD Code: I10 - ESSENTIAL (PRIMARY) HYPERTENSION Status: Chronic Current Visit: No (10) Restless leg syndrome SNOMED Code(s): 21698552 ICD Code: G25.81 - RESTLESS LEGS SYNDROME Status: Chronic Current Visit: No (11) Palliative care status SNOMED Code(s): 490571905 ICD Code: Z51.5 - ENCOUNTER FOR PALLIATIVE CARE Status: Acute Current Visit: Yes Problem List Initiated/Reviewed/Updated: Yes Orders Last 24hrs: Active Orders 24 hr Category Date Time Status Patient Status [ADT] Routine ADT 04/04/20 15:08 Active Antiembolic Devices [RC] .Routine Care 04/04/20 15:08 Active Bedrest Bedside Commode [RC] ASDIRECTED Care 04/04/20 15:08 Active Oxygen Therapy [RC] PRN Care 04/04/20 15:08 Active Oxygen Therapy, ED [RC] ASDIRECTED Care 04/04/20 14:00 Active VTE/DVT Education [RC] Per Unit Routine Care 04/04/20 15:08 Active Vital Signs [RC] Q4H Care 04/04/20 15:08 Active Warming Measures [Cooling Warming Measures] [RC] Care 04/04/20 15:13 Active ASDIRECTED Consult to Case Management/Hatchery Helper [CONS] Cons 04/04/20 15:08 Active Routine Nothing per Oral Now Diet [DIET] Diet 04/04/20 Dinner Active BASIC METABOLIC PANEL,BMP [CHEM] Routine Lab 04/05/20 05:00 Ordered CORONAVIRUS COVID-19, FOUZIA Routine Lab 04/04/20 17:00 Ordered LORazepam [Ativan] Med 04/04/20 15:08 Active 0.5 mg IVPUSH Q6H PRN Morphine Sulfate [Morphine] Med 04/04/20 15:08 Active 0.5 mg IVPUSH Q2H PRN Ondansetron [Zofran] Med 04/04/20 15:08 Active 4 mg IVPUSH Q6H PRN Sodium Chloride 0.9% [Normal Saline] 1,000 ml Med 04/04/20 15:45 Active IV ASDIRECTED Sodium Chloride 0.9% [Saline Flush] Med 04/04/20 15:08 Active 10 ml FLUSH ASDIRECTED PRN Antiembolic Hose [OM.PC] Per Unit Routine Oth 04/04/20 15:09 Ordered Peripheral IV Insertion Adult [OM.PC] Routine Oth 04/04/20 15:08 Ordered Resuscitation Status Routine Resus Stat 04/04/20 15:08 Ordered EKG 12 Lead [EK] Routine Ther 04/04/20 09:53 Stop Req Medication Orders Sodium Chloride (Normal Saline) 1,000 mls @ 100 mls/hr IV ASDIRECTED JOCE Last Admin: 04/04/20 16:14 Dose: 100 mls/hr Documented by: NAYLA Lorazepam (Ativan) 0.5 mg IVPUSH Q6H PRN PRN Reason: Anxiety Morphine Sulfate (Morphine) 0.5 mg IVPUSH Q2H PRN PRN Reason: shortness of breath Ondansetron HCl (Zofran) 4 mg IVPUSH Q6H PRN PRN Reason: Nausea/Vomiting Sodium Chloride (Saline Flush) 10 ml FLUSH ASDIRECTED PRN PRN Reason: Keep Vein Open Assessment/Plan Comment:: 1. Admit for hypothermia, PETEY, dehydration, failure to thrive, dementia. 2. NS at 100 ml/hr, recheck labs in am. 3. NPO, oral cares as patient is obtunded. 4. Morphine as needed pain/air hunger, Ativan as needed anxiety, Zofran as needed nausea. 5. DVT prophylaxis: Lovenox 30 mg sq q24hr, TEDs BLE. 6. DNR/DNI. Iwona would like to try fluid resuscitation to see if he comes around. No infect ious process found to account for his symptoms. He has had poor intake and also taking Lasix which could have contributed to his dehydration. If he responds to fluids, and more awake then will restart oral medications and as able get PT/OT and work on NH placement. If he would be made comfort measures then Iwona would like him to go back to [facility] as he can do hospice there. Covid screen don e for placement. - Mortality Measure Prognosis:: Poor
[2020-04-04] MEDS ORDERED: Acetaminophen 650 MG Tab.ER *PTOM PO SCH (18:00)
[2020-04-04] MEDS ORDERED: Enoxaparin 30 MG/0.3 ML Syringe SUBCUT SCH (18:30)
[2020-04-04] MEDS ORDERED: Cholecalciferol (Vitamin D3) 25 MCG Tab *PTOM PO SCH (21:00)
[2020-04-04] MEDS ORDERED: Donepezil 10 MG Tab *PTOM PO SCH (21:00)
[2020-04-04] MEDS ORDERED: amLODIPine 10 MG Tab *PTOM PO SCH (21:00)
[2020-04-04] MEDS ORDERED: rOPINIRole 0.5 MG Tab *PTOM PO SCH (21:00)
[2020-04-04] MEDS ORDERED: Memantine 10 MG Tab *PTOM PO SCH (21:00)
[2020-04-04 22:54] VITALS: BP 134/86; PULSE 92
[2020-04-05] MEDS ORDERED: Isosorbide Mononitrate 30 MG Tab.ER *PTOM PO SCH (09:00)
--- NOTE | 2020-04-05 18:38 | PCM.DCSUM1 ---
Discharge Summary - Hospital Course HPI Initial Comments: Marc is an 85 yr old male from [facility] who was brought in due to increased lethargy, functional decline, poor intake over the last 2-3 days. History obtained from Iwona, his POA as patient is limited in his response. No reports of fevers, chills, nausea, vomiting or diarrhea. He was able do do most of ADLs in his room, did have assistance with dressing and meals. He was found to be profoundly bradycardiac, hypothermic, dehydrated in ER. CT head was negative. CXR showed questionable pneumonia but clinically lungs are clear with normal WBC. PETEY present. Discussion with Iwona, she understands that fluid resuscitation may not improve his condition and if he would need to be changed to end of life care that he can go back to [facility], the type of room he has they are able to do end of life care with hospice. If he does improve, she was looking at NH placement. Diagnosis: Stroke: No - Discharge Data Discharge Date: 04/05/20 Discharge Disposition: 20 Preliminary Cause of *Q: Multi System Organ Failure (kidney failure secondary to acute kidney injury, dehydration, bradycardia, hypothermia- rewarmed) Condition: - Referral to Home Health Primary Care Physician: Saad Orona MD - Discharge Diagnosis/Problem(s) (1) Hypothermia due to non-environmental cause SNOMED Code(s): 351670020 ICD Code: R68.0 - HYPOTHERMIA, NOT ASSOCIATED W LOW ENVIRONMENTAL TEMPERATURE Status: Acute (2) PETEY (acute kidney injury) SNOMED Code(s): 93801465, 20551229 ICD Code: N17.9 - ACUTE KIDNEY FAILURE, UNSPECIFIED Status: Acute (3) Dehydration SNOMED Code(s): 52643586 ICD Code: E86.0 - DEHYDRATION Status: Acute (4) FTT (failure to thrive) in adult SNOMED Code(s): 793315539 ICD Code: R62.7 - ADULT FAILURE TO THRIVE Status: Acute (5) Metabolic encephalopathy SNOMED Code(s): 34833414 ICD Code: G93.41 - METABOLIC ENCEPHALOPATHY Status: Acute (6) CHF (congestive heart failure) SNOMED Code(s): 94697089 ICD Code: I50.9 - HEART FAILURE, UNSPECIFIED Status: Chronic (7) Physical deconditioning SNOMED Code(s): 37034009037106 ICD Code: R53.81 - OTHER MALAISE Status: Acute (8) Dementia SNOMED Code(s): 47131277 ICD Code: F03.90 - UNSPECIFIED DEMENTIA WITHOUT BEHAVIORAL DISTURBANCE Status: Chronic (9) Hypertension SNOMED Code(s): 62605295 ICD Code: I10 - ESSENTIAL (PRIMARY) HYPERTENSION Status: Chronic (10) Restless leg syndrome SNOMED Code(s): 35506946 ICD Code: G25.81 - RESTLESS LEGS SYNDROME Status: Chronic (11) Palliative care status SNOMED Code(s): 441939878 ICD Code: Z51.5 - ENCOUNTER FOR PALLIATIVE CARE Status: Acute - Patient Summary/Data Consults: Consultations 04/04/20 15:08 Consult to Case Management/Petroleum Engineering Professor [CONS] Routine Comment: Physician Instructions: ? comfort measures Service(s) to be Consulted: Petroleum Engineering Professor Special Instructions: FAB Bustillo stated that his room at [facility], they can do end of life cares there if he would require hospice. Hospital Course: Marc was started on IVF at 100 ml/hr and rewarmed with [employer] machine up to 97.7F, did not require any Morphine or Ativan. Respirations ceased at 0035, Charge nurse was notified, IV fluids discontinued, overnight hospitalist notified, no blood pressure or pulse. Marc was released to home. - Discharge Plan Home Medications: Home Meds Acetaminophen [Tylenol Arthritis] 1,300 mg PO BID 02/21/16 [History] Aspirin [Ecotrin EC] 325 mg PO SUMOWEFR 02/21/16 [History] Cholecalciferol (Vitamin D3) [Vitamin D3] 1,000 unit PO BEDTIME 02/21/16 [History] Dutasteride [Avodart] 0.5 mg PO DAILY 02/21/16 [History] Furosemide [Lasix] 40 mg PO DAILY 02/21/16 [History] Gluc/Chnd/Om3/DHA/EPA/Fish/Str [Glucosamine-Chondr Plus Sftgel] 1 tab TID 02/21/16 [History] Isosorbide Mononitrate [Imdur] 30 mg PO DAILY 02/21/16 [History] Metoprolol Succinate [Toprol XL 100mg] 100 mg PO DAILY 02/21/16 [History] Multivitamin-Min/Iron/FA/Vit K [Multi-Day Plus Minerals Tablet] 1 tab PO DAILY 02/21/16 [History] Omeprazole Magnesium [Prilosec Otc] 20 mg PO DAILY 02/21/16 [History] rOPINIRole [Requip] 0.5 mg PO BEDTIME 02/21/16 [History] Donepezil [Aricept] 10 mg PO BEDTIME #30 tablet 02/23/16 [Rx] Memantine HCl [Namenda] 10 mg PO BID 04/04/20 [History] Sodium Chloride [Saline Nasal [place]] 1 spray NASBOTH ASDIRECTED PRN 04/04/20 [History] Terbinafine [LamISIL AT 1% Crm] 1 applic TOP ASDIRECTED PRN 04/04/20 [History] amLODIPine Besylate [Amlodipine Besylate] 5 mg PO BID 04/04/20 [History] Forms: ED Department Discharge Referrals: Saad Orona MD [Primary Care Provider] - - Discharge Summary/Plan Comment DC Time >30 min.: No - Patient Data Vitals - Most Recent: Last Vital Signs Temp 97.7 F 04/04/20 22:00 Pulse 92 04/04/20 22:00 Resp 18 04/04/20 22:00 BP 134/86 04/04/20 22:00 Pulse Ox 94 L 04/04/20 22:00 Weight - Most Recent: 180 lb I&O - Last 24 hours: Intake & Output 04/05/20 04/05/20 04/05/20 06:59 14:59 22:59 Intake Total 288 Balance 288 Med Orders - Current: Current Medications Discontinued Medications Acetaminophen (Tylenol Arthritis Pain) 1,300 mg PO BIDMEALS JOCE Amlodipine Besylate (Norvasc) 5 mg PO BID JOCE Cholecalciferol (Vitamin D3) 25 mcg PO BEDTIME JOCE Donepezil HCl (Aricept) 10 mg PO BEDTIME JOCE Dutasteride (Avodart) 0.5 mg PO DAILY JOCE Enoxaparin Sodium (Lovenox) 30 mg SUBCUT Q24H JOCE Last Admin: 04/04/20 21:51 Dose: 30 mg Documented by: Sodium Chloride (Normal Saline) 1,000 mls @ 500 mls/hr IV ASDIRECTED JOCE Last Admin: 04/04/20 10:58 Dose: 500 mls/hr Documented by: Sodium Chloride (Normal Saline) 1,000 mls @ 100 mls/hr IV ASDIRECTED JOCE Last Admin: 04/04/20 16:14 Dose: 100 mls/hr Documented by: Isosorbide Mononitrate (Imdur) 30 mg PO DAILY JOCE Lorazepam (Ativan) 0.5 mg IVPUSH Q6H PRN PRN Reason: Anxiety Memantine (Namenda) 10 mg PO BID JOCE Morphine Sulfate (Morphine) 0.5 mg IVPUSH Q2H PRN PRN Reason: shortness of breath (Glucosamine- (Chondroitin) *Ptom) 1 tab PO TIDMEALS [facility] Multi-Vitamin Plus (Minerals Tab *Ptom) 1 tab PO DAILY [facility] Omeprazole 20mg * (Ptom) 20 mg PO DAILY JOCE Ondansetron HCl (Zofran) 4 mg IVPUSH Q6H PRN PRN Reason: Nausea/Vomiting Ropinirole HCl (Requip) 0.5 mg PO BEDTIME [facility] Sodium Chloride (Saline Flush) 10 ml FLUSH ASDIRECTED PRN PRN Reason: Keep Vein Open Last Admin: 04/04/20 10:55 Dose: 10 ml Documented by: Sodium Chloride ([place] Nasal [place]) 0 ml NASBOTH ASDIRECTED PRN PRN Reason: Dryness Sodium Chloride (Saline Flush) 10 ml FLUSH ASDIRECTED PRN PRN Reason: Keep Vein Open
== END 2020-04-05 00:35 | disposition expired | DRG 682 ==
LOC: FB.ED 09:39 → FB.MS 12:46 → OBSVTOIN 15:08
PROVIDERS: ADMIT Emergency Medicine; ATTEND Family Medicine
DX: N17.9 Acute kidney failure, unspecified (principal); G93.41 Metabolic encephalopathy; R68.0 Hypothermia, not associated with low environmental temperature; E86.0 Dehydration; R62.7 Adult failure to thrive; I11.0 Hypertensive heart disease with heart failure; R53.81 Other malaise; Z51.5 Encounter for palliative care; Z66 Do not resuscitate; I50.9 Heart failure, unspecified; G25.81 Restless legs syndrome; H54.7 Unspecified visual loss; I25.10 Atherosclerotic heart disease of native coronary artery without angina pectoris; Z20.828 Contact with and (suspected) exposure to other viral communicable diseases; E78.00 Pure hypercholesterolemia, unspecified; G47.30 Sleep apnea, unspecified; K21.9 Gastro-esophageal reflux disease without esophagitis; N40.0 Benign prostatic hyperplasia without lower urinary tract symptoms; M54.9 Dorsalgia, unspecified; G89.29 Other chronic pain; M19.90 Unspecified osteoarthritis, unspecified site; G30.9 Alzheimer's disease, unspecified; R29.6 Repeated falls; F02.80 Dementia in other diseases classified elsewhere, unspecified severity, without behavioral disturbance, psychotic disturbance, mood disturbance, and anxiety; F41.9 Anxiety disorder, unspecified; F32.9 Major depressive disorder, single episode, unspecified; Z79.84 Long term (current) use of oral hypoglycemic drugs; E11.9 Type 2 diabetes mellitus without complications; Z79.82 Long term (current) use of aspirin; Z79.899 Other long term (current) drug therapy; Z68.30 Body mass index [BMI] 30.0-30.9, adult
CPT/HCPCS: 36415; 70450; 71045; 80053; 81001; 82550; 83880; 84443; 84484; 85025; 93005; J7030; U0002; 96360; 96361; 99285-25; J1650